=== PATIENT | female | born 1965 | race Caucasian/White ===

== ENCOUNTER → 2020-12-03 | Outpatient (CLI) | payer OTHER ==
[~2020-12-03] MED LIST: ACET500T68 PO; ALPR1TAB2 PO; CARV25TA PO; CYCL5TAB PO; EPIPEN0.3 MG/0.3 IM; EZET10TA20 PO; FAMO-63 PO; IBUP200T44 PO; ICOS1CAP PO; LANS30CA66 PO; LEVO5TAB29 PO; OXYB5TAB33 PO; SUCR1ORA5 PO; SUMA50TA3 PO
--- NOTE | 2020-12-03 12:56 | PDOC1 ---
INITIAL PAIN CONSULT DATE OF SERVICE: DOS: DATE: 12/03/20 TIME: 12:49 CHIEF COMPLAINT: Chief Complaint: Low back and right lower extremity pain HISTORY OF PRESENT ILLNESS: 55-year-old female presents history of pain low back right lower extremity beginning after a fall at work June 10, 2020. Patient reports she was working at a local [employer] and was on a ladder and she was backing down off the ladder and missed the last step and hit the floor hard with her foot and then fell right onto her buttock and into 2 metal carts that were on the backside of her I will. Patient reports she had immediate pain in the low back itself and eventually started radiating the right lower extremity patient reports about 2 weeks later she fell again at work and exacerbated the pain even further. Carmen ent reports she is done physical therapy which she reports was helpful temporarily she still doing some stretching strength exercises with that as well also taking Tylenol and ibuprofen which both do decrease the pain by about 20 to 25% but not long-lasting. 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 Patient reports it wakes her from sleep least 2-3 times a night can affect her bowel bladder control but no incontinence some increased frequency with urination. Patient reports it does affect ability walk significantly but she is not using any assistive devices. Patient continues to work and she is getting through her working day putting up with the pain. Patient did have MRI scan lumbar spine dated August 03, 2020 showing some stenosis mild at no 3 4 with left L3-4 and left L4-5 neuroforaminal narrowing but severe neural foramen narrowing seen at other levels with facet osteoarthritis L5-S1 to a lesser extent L3-4 and L4-5. Patient has mild spinal stenosis at L3-4 as well as L4-5 with a 3 mm disc bulge at each level. PAST MEDICAL HISTORY: PMH: Hypertension, arthritis, sleep apnea, diverticulitis PREVIOUS SURGERIES: Past Surgical Hx: Cholecystectomy, left knee arthroscopy, right shoulder arthroscopy with rotator cuff repair CURRENT MEDICATIONS: Current Meds: Active Scripts Medications Dose Route/Sig Max Daily Dose Days Date Category Dose Instructions Motrin Ib (Ibuprofen) 200 Mg Tablet 200 Mg PO Q6H PRN 12/03/20 Reported Acetaminophen 500 Mg Tablet 1 Tab PO PRN Q6HRS PRN 15 12/03/20 Reported Prevacid (Lansoprazole) 30 Mg Capsule.dr 1 Cap PO DAILY 30 12/03/20 Reported Pepcid (Famotidine) 20 Mg Tablet 20 Mg PO HS 12/03/20 Reported Xyzal (Levocetirizine Dihydrochloride) 5 Mg Tablet 1 Tab PO DAILY 30 12/03/20 Reported Epipen (Epinephrine) 0.3 Mg/0.3 Ml Auto.injct 0.3 Mg IM UD 12/03/20 Reported Zetia (Ezetimibe) 10 Mg Tablet 1 Tab PO DAILY 30 12/03/20 Reported Vascepa (Icosapent Ethyl) 1 Gm Capsule 1 Gm PO BID 12/03/20 Reported Imitrex (Sumatriptan Succinate) 50 Mg Tablet 1 Tab PO UD 12/03/20 Reported Coreg (Carvedilol) 25 Mg Tablet 25 Mg PO BIDWMEALS 12/03/20 Reported Carafate (Sucralfate) 1 Gm/10 Ml Oral.susp 10 Ml PO QID 30 12/03/20 Reported before food Ditropan Xl (Oxybutynin Chloride) 5 Mg Tab.er.24 1 Tab PO DAILY 30 12/03/20 Reported Cyclobenzaprine Hcl 5 Mg Tablet 1 Tab PO QHS 12/03/20 Reported Xanax (Alprazolam) 1 Mg Tablet 1 Tab PO BID 12/03/20 Reported ALLERGIES; Allergies: Coded Allergies: Penicillins (Verified Allergy, Intermediate, 12/03/20) ciprofloxacin (Verified Allergy, Intermediate, hives, 12/03/20) Uncoded Allergies: flu shots (Allergy, Severe, SOB, hives, 12/03/20) lisin (Allergy, Severe, angioedema, 12/03/20) hydroch (Adverse Reaction, Intermediate, muscle cramps, 12/03/20) oxycod (Adverse Reaction, Intermediate, anxiety, 12/03/20) statins (Adverse Reaction, Intermediate, muscle cramps, 12/03/20) FAMILY HISTORY: Family Hx: Hypertension, hypercholesterolemia, diabetes, colon cancer, cardiac disease SOCIAL HISTORY: Social Hx: Patient drinks alcohol once or twice a month at the most does not smoke not use any illegal illicit recreational drug is lives locally in [facility] and works at the local [employer] REVIEW OF SYSTEMS: ROS: Positive for those items mentioned in history of present illness, all systems are reviewed, otherwise negative ,and are complete full and well-documented on patient's chart. PHYSICAL EXAM: VS: Blood pressure is 184/68 pulse 60 respirations 18, temperature is 98 .3 F height 5 feet 3 inches weight 273 pounds PE: PHYSICAL EXAMINATION: GENERAL: The patient is awake, alert, oriented, appropriate, very pleasant demeanor HEENT: Shows normocephalic, atraumatic. Extraocular movements are intact and symmetrical. Oral cavity: Mucous membranes moist and pink. Dentition is intact. NECK: Shows anterior throat supple without palpable lymphadenopathy noted. Swallow reflex symmetrical. CHEST: Shows normal on inspection. Breath sounds are clear bilaterally, no rales rhonchi or wheezes. HEART: Shows S1, S2 clear. No murmurs auscultated. ABDOMEN: Soft, nontender, nondistended, obese. No palpable organomegaly is noted. No rebound or guarding demonstrated. BACK: Shows spine grossly in the midline. Normal-appearing cervical lordotic curvature. There is slightly increased thoracic kyphosis, some minor flattening of the lumbar lordotic curvature. Lumbar paraspinous muscles show symmetrical on inspection, on palpation shows some moderate tenderness diffusely throughout the upper, middle and lower distribution of the paraspinous muscles bilaterally and also into the lower thoracic paraspinous musculature, firm and tender, but without specific trigger points, without radiation of pain. The patient has good rotational motion of the lumbar spine, both laterally as well as extension and flexion without significant difficulty. No tenderness over the spinous processes, sacrum or sacroiliac regions. EXTREMITIES: Lower extremities show deep tendon reflexes 1+ in the patellar and tendo calcaneus tendons. Motor exam is 4 on a scale of 5 with right dorsifle xion, extension, quadriceps and hamstring flexion and 5/5 on the left. Peripheral pulses are 1 posterior tibial. No peripheral edema is noted bilaterally. Lower extremities are warm and dry to touch, equal in color and appearance. Straight leg raise noted to be positive on the right about 40 degrees, left side is negative. Gaenslen's and Aidan's maneuvers are negative bilaterally. The patient is able to stand, stand on her toes without significant difficulty walks with a slight favoring gait does appear to favor the right lower extremity mildly not use any assistive devices to ambulate. SKIN: Shows warm and dry, good turgor. No edema. No sores, rashes or bruising throughout. IMPRESSION: Impression: 55-year-old female with history of injury while working June 10, 2020 and again 2 weeks later Subsequent low back pain and right radicular lower extremity pain MRI scan lumbar spine as noted Arthritis Hypertension Plan: Options were discussed with the patient including conservative management physical therapies and vaginal techniques. Patient would like to proceed most conservative course at this time we will return to physical therapy and have lumbar traction performed as well as stretching strength exercises and mobility exercises. I once this is completed patient will follow-up if not significantly improved to discuss potential interventional techniques such as a lumbar epidural steroid injection. Patient also given Medrol Dosepak with instructions side effects be aware of and will follow up after physical therapy has begun. JAYESH DURAN MD Dec 03, 2020 12:56
== END | disposition home or self-care (01) ==
LOC: PNCL 11:02
PROVIDERS: ATTEND Anesthesiology
DX: M54.5 Low back pain (principal); M79.604 Pain in right leg; I10 Essential (primary) hypertension; M19.90 Unspecified osteoarthritis, unspecified site; G47.30 Sleep apnea, unspecified; Z90.49 Acquired absence of other specified parts of digestive tract; Z98.890 Other specified postprocedural states; Z82.49 Family history of ischemic heart disease and other diseases of the circulatory system; Z83.3 Family history of diabetes mellitus; Z80.0 Family history of malignant neoplasm of digestive organs; Z88.0 Allergy status to penicillin; Z88.1 Allergy status to other antibiotic agents; Z88.8 Allergy status to other drugs, medicaments and biological substances; Z79.899 Other long term (current) drug therapy
CPT/HCPCS: 99214; G0463

== ENCOUNTER → 2021-01-12 | Outpatient (CLI) | payer OTHER ==
[~2021-01-12] MED LIST changes: +IOHEXOL 180 MG/ML 10 ML VIAL. ONE; +methylPREDNISolone ACETATE 40 MG/ML VIAL. ONE; +methylPREDNISolone ACETATE 80 MG/ML VIAL. ONE
--- NOTE | 2021-01-12 09:12 | PDOC4 ---
PROCEDURE Procedure Patient was consented for lumbar epidural steroid injection. Risks were dis cussed including but not limited to: Bleeding, infection, possibility of epidural hematoma and subsequent neurological compromise, dural puncture, headaches, spinal cord and/or nerve damage, side effects of steroid medication, and poor results regarding pain control. Patient understands and wished to proceed. Procedure is lumbar epidural steroid injection under local anesthetic using sterile prep and drape at the L4-5 level using C-arm fluoroscopic guidance in both AP and lateral views medications injected is 120 mg Depo-Medrol +10mL preservative-free normal saline and 2 mL contrast- condition at discharge is stable patient tolerated procedure well had no complications. JAYESH DURAN MD January 12, 2021 09:12
--- NOTE | 2021-01-12 09:12 | PDOC ---
Progress Note - Pain Clinic Date of Service: DOS: DATE: 01/12/21 TIME: 09:09 Diagnosis: Dx: Lumbar radiculopathy with lumbar degenerative disc disease History or Present Illness: HPI: 55-year-old female returns to follow-up status post initial evaluation and orders for physical therapy patient has completed her first round of physical therapy now with traction and reports about 60% improvement but still significant pain in the low back right lower extremity patient with standing walking especially at first gets up in the morning getting from seated position pain in the low back rating the right lower extremity posterior gluteus posterior lateral thigh lateral anterior thigh medial thigh patient reports that sharp and aching can be constant in the leg and shooting as well patient reports is a 6 on scale 10 is worse over the past week average is a 4 and least is a 4 is a 5 today. Patient reports no new motor or sensory deficits no bladder incontinence still significant pain in the low back right lower extremity. Patient reports it wakes her from sleep about once every 4 hours otherwise the therapy she feels is helping and she is doing the stretches and strengthening exercises she was shown at home daily. Physical Exam: VS: Blood pressure is 160/70 pulse 58 respirations 18 temperature 98.1 F height is 5 feet 3 inches weight is 270 pounds PE: PHYSICAL EXAMINATION: GENERAL: The patient is awake, alert, oriented, appropriate, very pleasant demeanor HEENT: Shows normocephalic, atraumatic. Extraocular movements are intact and symmetrical. Oral cavity: Mucous membranes moist and pink. NECK: Shows anterior throat supple without palpable lymphadenopathy noted. Swallow reflex symmetrical. CHEST: Shows normal on inspection. Breath sounds are clear bilaterally. HEART: Shows S1, S2 clear. No murmurs auscultated. ABDOMEN: Soft, nontender, nondistended, obese. No palpable organomegaly is noted. No rebound or guarding demonstrated. BACK: Shows spine grossly in the midline. Normal-appearing cervical lordotic curvature. There is slightly increased thoracic kyphosis, some minor flattening of the lumbar lordotic curvature. Lumbar paraspinous muscles show symmetrical on inspection, on palpation shows some moderate tenderness diffusely throughout the upper, middle and lower distribution of the paraspinous muscles without specific trigger points, without radiation of pain. The patient has good rotational motion of the lumbar spine, both laterally as well as extension and flexion without significant difficulty. No tenderness over the spinous processes, sacrum or sacroiliac regions. EXTREMITIES: Lower extremities show deep tendon reflexes 1+ in the patellar and tendo calcaneus tendons. Motor exam is 5 on a scale of 5 with right dorsif lexion, extension, quadriceps and hamstring flexion and 4/5 on the left. Peripheral pulses are 1+ posterior tibial. No peripheral edema is noted bilaterally. Lower extremities are warm and dry to touch, equal in color and appearance. SKIN: Shows warm and dry, good turgor. No edema. No sores, rashes or bruising throughout. Procedure: Procedure: Options were discussed with patient. Patient chart was reviewed as her current medication regimen updated current review of systems updated today as well. We will proceed with a second lumbar epidural steroid injection today with fluoroscopic guidance. Risks were discussed including but not limited to: Bleeding, infection, possibility of epidural hematoma and subsequent neurol ogical compromise, dural puncture, headaches, spinal cord and/or nerve damage, side effects of steroid medication, and poor results regarding pain control. Patient understands and wished to proceed. Patient will return to the clinic in approximate 2 weeks for follow-up, was counseled as return appointment activity level and side effects be aware of. Also will renew patient's physical therapy with traction and strengthening stretching exercises as well. Medication Injected: Med Injected: Procedure is lumbar epidural steroid injection under local anesthetic using sterile prep and drape at the L4-5 level using C-arm fluoroscopic guidance in both AP and lateral views medications injected is 120 mg Depo-Medrol +10mL preservative-free normal saline and 2 mL contrast- condition at discharge is stable patient tolerated procedure well had no complications. Condition at Discharge: Condition at Discharge: Condition at discharge stable, patient tolerated procedure well and had no complications. JAYESH DURAN MD January 12, 2021 09:12
== END | disposition home or self-care (01) ==
LOC: PNCL 08:16
PROVIDERS: ATTEND Anesthesiology
DX: M51.16 Intervertebral disc disorders with radiculopathy, lumbar region (principal); Z79.899 Other long term (current) drug therapy; Z88.0 Allergy status to penicillin; Z88.1 Allergy status to other antibiotic agents; Z88.8 Allergy status to other drugs, medicaments and biological substances
CPT/HCPCS: 62323; J1030; J1040; Q9965

== ENCOUNTER → 2021-01-26 | Outpatient (CLI) | payer OTHER ==
--- NOTE | 2021-01-26 09:43 | PDOC4 ---
PROCEDURE Procedure Patient was consented for lumbar epidural steroid injection. Risks were dis cussed including but not limited to: Bleeding, infection, possibility of epidural hematoma and subsequent neurological compromise, dural puncture, headaches, spinal cord and/or nerve damage, side effects of steroid medication, and poor results regarding pain control. Patient understands and wished to proceed. Procedure is lumbar epidural steroid injection under local anesthetic using sterile prep and drape at the L4-5 level using C-arm fluoroscopic guidance in both AP and lateral views medications injected is 120 mg Depo-Medrol +10mL preservative-free normal saline and 2 mL contrast- condition at discharge is stable patient tolerated procedure well had no complications. JAYESH DURAN MD Jan 26, 2021 09:43
--- NOTE | 2021-01-26 09:43 | PDOC ---
Progress Note - Pain Clinic Date of Service: DOS: DATE: 01/26/21 TIME: 09:40 Diagnosis: Dx: Lumbar radiculopathy with lumbar degenerative disc disease History or Present Illness: HPI: 56-year-old female returns for follow-up status post lumbar epidural steroid injection x1. Patient reports that 90% improvement for the first 2 weeks or so the pain returning then after that time into the low back and the right lower extremity posterior gluteus lateral thigh anterior thigh medial thigh medial lower leg patient reports still better than it was but is been returning over the past week or so patient reports that sharp and aching in the back radiating the right lower extremity can be unbearable at times with weightbearing standing walking patient reports otherwise she is doing much better distance walking doing household activities and sleeping better at night still sleeps fairly well but has been waking her from sleep over the past week once every 4 or 5 hours. Patient reports her pain is an 8 on scale 10 is worse over the past week 5 on average 5 its least is a 5 today. Patient reports no new motor or sensory deficits no new bowel or bladder incontinence. Physical Exam: VS: Blood pressure is 166/74 pulse 55 respirations 18 temperature 96.5 F height is 5' 3 inches weight is 266 pounds PE: PHYSICAL EXAMINATION: GENERAL: The patient is awake, alert, oriented, appropriate, very pleasant demeanor HEENT: Shows normocephalic, atraumatic. Extraocular movements are intact and symmetrical. NECK: Shows anterior throat supple without palpable lymphadenopathy noted. Swallow reflex symmetrical. CHEST: Shows normal on inspection. Breath sounds are clear bilaterally. HEART: Shows S1, S2 clear. No murmurs auscultated. ABDOMEN: Soft, nontender, nondistended, obese. No palpable organomegaly is noted. BACK: Shows spine grossly in the midline. Normal-appearing cervical lordotic curvature. There is slightly increased thoracic kyphosis, some minor flattening of the lumbar lordotic curvature. Lumbar paraspinous muscles show symmetrical on inspection, on palpation shows some moderate tenderness diffusely throughout the upper, middle and lower distribution of the paraspinous muscles, without specific trigger points, without radiation of pain. The patient has good rotational motion of the lumbar spine, both laterally as well as extension and flexion without significant difficulty. No tenderness over the spinous processes, sacrum or sacroiliac regions. EXTREMITIES: Lower extremities show deep tendon reflexes 1 in the patellar and tendo calcaneus tendons. Motor exam is 5 on a scale of 5 with right dorsiflexion, extension, quadriceps and hamstring flexion and 5/5 on the left. Peripheral pulses are 1+ posterior tibial. No peripheral edema is noted bilaterally. Lower extremities are warm and dry to touch, equal in color and appearance. SKIN: Shows warm and dry, good turgor. No edema. No sores, rashes or bruising throughout. Procedure: Procedure: Options were discussed with the patient. Patient's old chart was reviewed as her current medication regimen updated current review of systems updated today as well. We will proceed with a second in the series lumbar epidural steroid injection today with fluoroscopic guidance. Risks were discussed including but not limited to: Bleeding, infection, possibility of epidural hematoma and subsequent neurological compromise, dural puncture, headaches, spinal cord and/or nerve damage, side effects of steroid medication, and poor results regarding pain control. Patient understands and wished to proceed. Patient will return to the clinic in approximate 2 weeks for follow-up, was counseled as to return appointment activity level and side effects to be aware of. Medication Injected: Med Injected: Procedure is lumbar epidural steroid injection under local anesthetic using sterile prep and drape at the L4-5 level using C-arm fluoroscopic guidance in both AP and lateral views medications injected is 120 mg Depo-Medrol +10mL preservative-free normal saline and 2 mL contrast- condition at discharge is stable patient tolerated procedure well had no complications. Condition at Discharge: Condition at Discharge: Condition at discharge is stable, patient tolerated the procedure well and had no complications. JAYESH DURAN MD Jan 26, 2021 09:43
== END | disposition home or self-care (01) ==
LOC: PNCL 09:10
PROVIDERS: ATTEND Anesthesiology
DX: M51.16 Intervertebral disc disorders with radiculopathy, lumbar region (principal); Z79.899 Other long term (current) drug therapy; Z88.0 Allergy status to penicillin; Z88.1 Allergy status to other antibiotic agents; Z91.013 Allergy to seafood; Z88.8 Allergy status to other drugs, medicaments and biological substances
CPT/HCPCS: 62323; J1030; J1040; Q9965

== ENCOUNTER → 2021-02-09 | Outpatient (CLI) | payer OTHER ==
[~2021-02-09] MED LIST changes: -IOHEXOL 180 MG/ML 10 ML VIAL. ONE; -methylPREDNISolone ACETATE 40 MG/ML VIAL. ONE; -methylPREDNISolone ACETATE 80 MG/ML VIAL. ONE
--- NOTE | 2021-02-09 09:34 | PDOC ---
Progress Note - Pain Clinic Date of Service: DOS: DATE: 02/09/21 TIME: 09:32 Diagnosis: Dx: Lumbar radiculopathy with lumbar degenerative disc disease History or Present Illness: HPI: 56-year-old female returns to follow-up status post lumbar epidural steroid injections x2 most recently January 26, 2021. Patient reports about 90% improvement in the low back and right lower extremity pain but still some significant pain with extended walking and standing specially at work when she is bending and stooping twisting and lifting items patient reports her pain is a 6 on scale 10 is worse over the past week for an average 4 to least is a 4 today patient repo rts that sharp and shooting the low back right lower extremity posterior gluteus posterior lateral thigh lateral anterior thigh anterior medial thigh and some in the calf as well patient reports that she is doing much better with sitting or laying down generally not awaken her from sleep at night feels like she is doing quite a bit better however still pain still persistent in the low back and right leg described as shooting and sharp. Patient reports no new motor or sensory deficits no new bowel or bladder incontinence or other complaints. Physical Exam: VS: Blood pressure is 142/73 pulse 63 respirations 18 temperature 98.4 F height is 33 inches weight is 267 pounds PE: PHYSICAL EXAMINATION: GENERAL: The patient is awake, alert, oriented, appropriate, very pleasant demeanor HEENT: Shows normocephalic, atraumatic. Extraocular movements are intact and symmetrical. Oral cavity: Mucous membranes moist and pink. Dentition is intact. NECK: Shows anterior throat supple without palpable lymphadenopathy noted. Swallow reflex symmetrical. CHEST: Shows normal on inspection. Breath sounds are clear bilaterally. HEART: Shows S1, S2 clear. No murmurs auscultated. ABDOMEN: Soft, nontender, nondistended, obese. BACK: Shows spine grossly in the midline. Normal-appearing cervical lordotic curvature. There is slightly increased thoracic kyphosis, some minor flattening of the lumbar lordotic curvature. Lumbar paraspinous muscles show symmetrical on inspection, on palpation shows some moderate tenderness diffusely throughout the upper, middle and lower distribution of the paraspinous muscles without specific trigger points, without radiation of pain. The patient has good rotational motion of the lumbar spine, both laterally as well as extension and flexion without significant difficulty. No tenderness over the spinous processes, sacrum or sacroiliac regions. EXTREMITIES: Lower extremities show deep tendon reflexes 1+ in the patellar and tendo calcaneus tendons. Motor exam is 5 on a scale of 5 with right dorsiflexion, extension, quadriceps and hamstring flexion and 5/5 on the left. Peripheral pulses are 1+ posterior tibial. No peripheral edema is noted bilaterally. Lower extremities are warm and dry to touch, equal in color and appearance. SKIN: Shows warm and dry, good turgor. No edema. No sores, rashes or bruising throughout. Procedure: Procedure: Options were discussed with the patient. Patient chart was reviewed as her cur rent medication regimen updated current review of systems updated today as well. We will await preauthorization for third lumbar epidural steroid injections patient still has some residual pain left in the low back and right lower extremity radicular fashion following an L4-5 dermatomal distribution. Once authorization is obtained with her [employer] insurance we will have her return for third lumbar epidural steroid injection at that time. In the meantime patient will continue with stretching strength exercises as currently. Medication Injected: Med Injected: None Condition at Discharge: Condition at Discharge: Condition at discharge is stable. JAYESH DURAN MD Feb 09, 2021 09:34
== END | disposition home or self-care (01) ==
LOC: PNCL 09:04
PROVIDERS: ATTEND Anesthesiology
DX: M51.16 Intervertebral disc disorders with radiculopathy, lumbar region (principal); Z79.899 Other long term (current) drug therapy; Z88.0 Allergy status to penicillin; Z88.8 Allergy status to other drugs, medicaments and biological substances
CPT/HCPCS: 99212; G0463